=== PATIENT | female | born 1975 | race Caucasian/White ===

== ENCOUNTER 2020-04-15 12:04 | Day surgery (SDC) | payer OTHER ==
[~2020-04-15] VITALS: Ht 160 cm; Wt 70.6 kg
[~2020-04-15 12:04] MED LIST: Norco PO
[2020-04-15 12:38] VITALS: BP 137/87
[2020-04-15] MEDS ORDERED: CHLORHEXIDINE 15 ML UDC ONE (12:44)
[2020-04-15 12:58] LABS: HCG UR SG 1.021 (1.003-1.030)
[2020-04-15] MEDS ORDERED: LACTATED RINGERS 1,000 ML IV SCH (13:00)
[2020-04-15] MEDS ORDERED: CHLORHEXIDINE 15 ML UDC MM ONE (13:00)
[2020-04-15] MEDS ORDERED: MIDAZOLAM 1 MG/ML, 2ML ONE (14:03)
[2020-04-15] MEDS ORDERED: FENTANYL PF 100 MCG/2ML ONE ×2 (14:03→15:38)
[2020-04-15] MEDS ORDERED: BUPIVACAINE/PF-EPI 0.5% 1:200K ONE (14:14)
[2020-04-15] MEDS ORDERED: LABETALOL 5MG/ML, 20ML IV PRN (14:30)
[2020-04-15] MEDS ORDERED: ACETAMINOPHEN 325 MG TABLET PO PRN (14:30)
[2020-04-15] MEDS ORDERED: ALBUTEROL SULFATE 2.5 MG/3 ML NPPB PRN (14:30)
[2020-04-15] MEDS ORDERED: LORazepam 2 MG/ML, 1ML IVPush PRN (14:30)
[2020-04-15] MEDS ORDERED: MEPERIDINE/PF 25MG/0.5ML IVPush PRN (14:30)
[2020-04-15] MEDS ORDERED: hydrALAzine 20 MG/ML, 1ML IV PRN (14:30)
[2020-04-15] MEDS ORDERED: FENTANYL PF 100 MCG/2ML IV PRN (14:30)
[2020-04-15] MEDS ORDERED: HYDROmorphone 1 MG/ML, 1ML INJ IVPush PRN (14:30)
[2020-04-15] MEDS ORDERED: OXYcodone 5 MG/5 ML ORAL.SOL UDC PO PRN (14:30)
[2020-04-15] MEDS ORDERED: PROMETHAZINE 25 MG/ML, 1ML IVPush PRN (14:30)
[2020-04-15] MEDS ORDERED: DEXAMETHASONE 4 MG/ML, 1ML ONE (15:50)
[2020-04-15] MEDS ORDERED: CEFAZOLIN 1,000 MG ONE (15:50)
[2020-04-15] MEDS ORDERED: LIDOCAINE-MPF 2% ,5ML ONE (15:50)
[2020-04-15] MEDS ORDERED: BUPIVACAINE/PF 0.25% ONE (15:50)
[2020-04-15] MEDS ORDERED: ROCURONIUM 10MG/ML,5ML ONE (15:50)
[2020-04-15] MEDS ORDERED: PROPOFOL 10 MG/ML, 20ML ONE (15:50)
[2020-04-15] MEDS ORDERED: ONDANSETRON 2MG/ML, 2ML ONE (15:50)
[2020-04-15] MEDS ORDERED: NEOSTIGMINE 1 MG/ML, 10ML ONE (15:50)
[2020-04-15] MEDS ORDERED: GLYCOPYRROLATE 0.2MG/1ML, 5ML ONE (15:50)
[2020-04-15] MEDS ORDERED: MEPERIDINE/PF 25MG/ML,1ML ONE (16:18)
== END 2020-04-15 18:05 | disposition home or self-care (01) ==
LOC: OUT 12:04
PROVIDERS: ATTEND Orthopaedic Surgery
DX: S42.251A Displaced fracture of greater tuberosity of right humerus, initial encounter for closed fracture (principal); G89.18 Other acute postprocedural pain; F17.210 Nicotine dependence, cigarettes, uncomplicated; Z79.891 Long term (current) use of opiate analgesic; Z79.899 Other long term (current) drug therapy; W01.0XXA Fall on same level from slipping, tripping and stumbling without subsequent striking against object, initial encounter; Y93.89 Activity, other specified; Y92.89 Other specified places as the place of occurrence of the external cause; Y99.8 Other external cause status
CPT/HCPCS: 23670; 64415; 73060; 81025; C1713; J0690; J1100; J2175; J2250; J2405; J2704; J2710; J3010; J7120; 76000